=== PATIENT | male | born 1965 | race Caucasian/White ===

== ENCOUNTER → 2023-06-24 10:00 | Outpatient (BNVA) | payer OTHER, SELFPAY | PROVIDERS: PCP Family Medicine; Referring Provider Family Medicine; Visit Provider Surgery | DX: Z12.11 Encounter for screening for malignant neoplasm of colon | CPT/HCPCS: 99203 ==

== ENCOUNTER 2023-06-25 12:11 | Outpatient (CLI) | payer OTHER, SELFPAY | END 2023-06-25 12:12 | disposition home or self-care (01) | LOC: LAB 12:11 | PROVIDERS: PCP Family Medicine; Visit Provider Surgery | DX: K59.09 Other constipation (principal) | CPT/HCPCS: 82274 ==

== ENCOUNTER 2023-09-25 06:00 | Day surgery (SDC) | payer OTHER, SELFPAY ==
--- NOTE | 2023-09-25 05:43 | W.PM.OPSFHP ---
Same Day Surgery H&P Indication for Procedure/HPI DATE OF PROCEDURE: September 25, 2023 CHIEF COMPLAINT/INDICATIONFOR SURGICAL PROCEDURE: need for screening colonoscopy PREOP DIAGNOSIS: need for screening colonoscopy PLANNED PROCEDURE: Operation Date: 09/25/23 07:00 Proposed Procedures p 59410 colon G0121 screen colon A risk Z12.11(Not Applicable) - Yogesh Cerna MD Medications/Allergies* Home Medications Medication Instructions Recorded Confirmed Type atorvastatin 80 mg tablet 80 mg PO DAILY 06/24/23 09/23/23 History meloxicam 7.5 mg tablet 7.5 mg PO DAILY 06/24/23 09/23/23 History metoprolol tartrate 50 mg tablet 50 mg PO BID 06/24/23 09/23/23 History omeprazole 40 mg capsule,delayed 40 mg PO DAILY 06/24/23 09/23/23 History release lisinopril 20 mg tablet 20 mg PO DAILY 09/23/23 09/23/23 History metformin 500 mg tablet 500 mg PO BID 09/23/23 09/23/23 History Allergies/Adverse Reactions Allergy/AdvReac Type Severity Reaction Status Date / Time Sulfa (Sulfonamide Allergy ADR-Muscle Verified 09/23/23 08:29 Antibiotics) Pain Pertinent History/Comorbid Conditions* Family History (Updated 06/24/23 @ 10:22 by SAMI Loja) Father, age 32 Borderline diabetes Mother Cancer Father unsure of which kind Hypertension Mother Social History Smoking and tobacco/nicotine status: never used tobacco/nicotine Alcohol intake: current Alcohol intake frequency: holidays/special occasions only Pertinent Exam Findings alert, oriented x 3 and clear to auscultation bilaterally Recommendations Surgery/Procedure today Coding Level of Care Code Acute Code for Chg Fwd
[2023-09-25 06:18] VITALS: BP 132/94; PULSE 80; RESP 18; TEMP 36.1; O2SAT 98; BMI 34.7
[2023-09-25] MEDS: sodium chloride 0.9% 1,000 ML 30 ML IV (06:30)
[2023-09-25 06:34] LABS: Glucose Point of Care 152 mg/dL (70-110)
--- NOTE | 2023-09-25 06:55 | ANES.PREANE2 ---
Pre-Anesthetic Assessment Height/Weight: Height 1.75 m Weight 106.594 kg Temp Pulse Resp BP Pulse Ox O2 Del Method 96.9 F L 80 18 132/94 98 Room Air 09/25/23 06:18 09/25/23 06:18 09/25/23 06:18 09/25/23 06:18 09/25/23 06:18 09/25/23 06:18 Preop Diagnosis: need for screening colonoscopy Operation Date: 09/25/23 07:00 Proposed Procedures p 26592 colon G0121 screen colon A risk Z12.11(Not Applicable) - Yogesh Cerna MD Familial anesthetic complications: none Was Beta John taken within 24 hours: N/A Was Clonidine taken within 24 hours: N/A Last intake: Intake Last Liquid Date 09/24/23 Last Liquid Time 23:00 Last Solid Date 09/23/23 Last Solid Time 18:00 Social No alcohol and No tobacco Exam alert and oriented x 3 Airway Submandibular: within normal limits Cervical ROM: within normal limits Mallampati: Class III Dentition: full Pulmonary Sleep Apnea CV/HEM Hypertension None reported Hepatic None reported GI Gastroesophageal Reflux Disease and Hiatal Hernia Metabolic Diabetes Mellitus and Morbid Obesity [facility] None reported Neuropsych None reported Anesthetic Plan ASA status: 3 Anesthesia: Anesthesia Evaluation and General Risk of > 500 ml blood loss (7ml/kg in children): No Medications/Allergies Home Medications Medication Instructions Recorded Confirmed Last Taken Type atorvastatin 80 mg tablet 80 mg PO DAILY 06/24/23 09/23/23 09/23/23 History meloxicam 7.5 mg tablet 7.5 mg PO DAILY 06/24/23 09/23/23 09/23/23 History metoprolol tartrate 50 mg tablet 50 mg PO BID 06/24/23 09/23/23 09/24/23 07:30 History omeprazole 40 mg capsule,delayed 40 mg PO DAILY 06/24/23 09/23/23 09/24/23 History release lisinopril 20 mg tablet 20 mg PO DAILY 09/23/23 09/23/23 09/23/23 History metformin 500 mg tablet 500 mg PO BID 09/23/23 09/23/23 09/23/23 History Multi Vitamin 1 tab PO DAILY 09/25/23 09/25/23 09/24/23 History Allergies Allergy/AdvReac Type Severity Reaction Status Date / Time Sulfa (Sulfonamide Allergy ADR-Muscle Verified 09/23/23 08:29 Antibiotics) Pain Current Medications Generic Name Dose Route Start Last Admin Trade Name Freq PRN Reason Stop Dose Admin Sodium Chloride 1,000 mls @ 30 mls/hr 09/25/23 06:15 09/25/23 06:30 Sodium Chloride 0.9% IV 09/26/23 06:14 30 mls/hr .Q24H TRACEE Administration PFSH Anesthesia Family History (Updated 06/24/23 @ 10:[address]) Mother Hypertension Borderline diabetes Father , age 32 Cancer unsure of which kind Social History (Updated 06/24/23 @ 10:[address]) Smoking and tobacco/nicotine status: never used tobacco/nicotine Alcohol intake: current Alcohol intake frequency: holidays/special occasions only Data Anesthesia Cardiac Studies: No Data to Display
[2023-09-25 07:37] VITALS: BP 115/78; PULSE 55; RESP 18; TEMP 36.2; O2SAT 92
[2023-09-25 07:47] VITALS: BP 132/83; PULSE 73; RESP 18; O2SAT 96
[2023-09-25 07:58] VITALS: BP 117/84; PULSE 63; RESP 18; O2SAT 97
--- NOTE | 2023-09-25 08:16 | ANE.PACU2 ---
Inpatient post-anesthesia follow up: Airway intact: Yes Vital signs: Temperature 97.1 F Pulse Rate 63 Respiratory Rate 18 Blood Pressure 117/84 Pulse Oximetry 97 Oxygen Delivery Me thod Room Air Oxygen Flow Rate Fraction of Inspir ed Oxygen Hydration adequate: Yes Nausea and vomiting: No Pain level: 1 Mental status: Baseline
== END 2023-09-25 08:23 | disposition home or self-care (01) ==
PROVIDERS: PCP Family Medicine; Visit Provider Surgery
PROC: 0DJD8ZZ Inspection of Lower Intestinal Tract, Via Natural or Artificial Opening Endoscopic (ICD-10-PCS; CPT 45378; principal; 2023-09-25 07:00)
DX: Z12.11 Encounter for screening for malignant neoplasm of colon (principal); K57.30 Diverticulosis of large intestine without perforation or abscess without bleeding; D12.5 Benign neoplasm of sigmoid colon; D12.3 Benign neoplasm of transverse colon; G47.30 Sleep apnea, unspecified; I10 Essential (primary) hypertension; K21.9 Gastro-esophageal reflux disease without esophagitis; E11.9 Type 2 diabetes mellitus without complications; E66.01 Morbid (severe) obesity due to excess calories; Z68.34 Body mass index [BMI] 34.0-34.9, adult; Z79.84 Long term (current) use of oral hypoglycemic drugs
CPT/HCPCS: 36416; 45380; 45385; 82962; 88305; J2704; J7030

== ENCOUNTER → 2023-10-08 10:48 | Outpatient (BNVA) | payer OTHER, SELFPAY | PROVIDERS: PCP Family Medicine; Visit Provider Surgery | DX: Z09 Encounter for follow-up examination after completed treatment for conditions other than malignant neoplasm (principal) | CPT/HCPCS: 99213 ==

== ENCOUNTER 2023-11-24 20:00 | Outpatient (CLI) | payer OTHER, SELFPAY | END 2023-11-24 20:01 | disposition home or self-care (01) | LOC: SLEEP 11-25 06:29 | PROVIDERS: PCP Family Medicine; Visit Provider Family Medicine | DX: G47.33 Obstructive sleep apnea (adult) (pediatric) (principal); G47.36 Sleep related hypoventilation in conditions classified elsewhere | CPT/HCPCS: 95811 ==

== ENCOUNTER 2024-03-02 09:10 | Outpatient (CLI) | payer OTHER, SELFPAY ==
--- NOTE | 2024-03-02 | ECG_ITS ---
[facility] Test Date: 2024-03-02 Pat Name: Joce Turner Department: Room: Gender: Male [employer] Advisor: : 1965 Requested By: Trista Christiansen Order Number: [id number] Yvon MD: Sean Juarez M.D. Interpretive Statements LEXISCAN SESTAMIBI STRESS TEST Procedure: At the baseline, the blood pressure was 126/77 mmHg with a heart rate of 56 bpm. The electrocardiogram showed sinus bradycardia, normal axis with normal ST and T's. The Lexiscan was infused over a period of 20 seconds. A total of 0.4 mg of Lexiscan was infused. The stress phase was continued for a total of 5 minutes. Heart rate was at the end of stress phase was 70 bpm and a blood pressure of 132/81 mmHg. The EKG at the peak infusion revealed normal sinus rhythm with no significant ST-T wave changes. Sestamibi was injected 20 seconds after the Lexiscan infusion. Blood pressure at the end of recovery phase was 130/81 mmHg with a heart rate of 67 bpm. Conclusion: 1. Normal EKG response to Lexiscan infusion 2. No Lexiscan induced chest pain or cardiac arrhythmia. 3. Normal blood pressure and heart rate response. 4. Sestamibi/sestamibi perfusion scan pending; see separate report. Electronically Signed On 03-12-2024 21:46:40 CDT by eSan Juarez M.D. [email or web address]
--- NOTE | 2024-03-02 09:17 | NMCV_ITS ---
NM bertha perf SPECT r/s* [id number] Joce Turner Age: 59 Gender: M : 1965 Exam Date: 03/02/2024 10:09 Ordering Phys: Trista Christiansen MD Technologist: GUILLERMO Mcneal Exam Location: [facility] Indications: cp STRESS TEST Please see separate stress test report in [facility] for full findings IMAGE PROTOCOL Rest/Stress 1 Lexiscan Day Radiopharmaceutical Dose (mCi) Administration Site Administered by Rest: Tc-99m 10.6 IV Sarah Banuelos, DYNO TECHNICIAN Sestamibi Stress:Tc-99m 33 IV Sarah Riveragle, DYNO TECHNICIAN Sestamibi Rest: 02-Mar-2024 60 Discovery 630 Stress: 02-Mar-2024 30 Discovery 630 0.4mg Lexiscan. Images obtained in supine and prone position. SPECT RESULTS Technical Quality: Good Raw Data Analysis: Normal Image Corrections: No attenuation or motion correction applied Summed Stress Score: 5 Summed Rest Score: 8 Summed Difference Score: 1 PERFUSION FINDINGS There is medium sized area of fixed perfusion defect seen in inferior and inferolateral de. This is consistent with medium sized area of prior infarct with no significant oralia-infarct ischemia in these territories. Small area of reversible perfusion defect seen in the apical wall. FUNCTIONAL RESULTS (calculated via Gated SPECT) Stress Image LV EF (%): 70 Stress EDV (mL):100 TID: 1.17 Stress ESV (mL):30 FUNCTIONAL FINDINGS: There is normal left ventricular systolic function. IMPRESSIONS 1. Abnormal myocardial perfusion imaging with medium sized area of prior infarct with no significant oralia-infarct ischemia seen in the inferior and inferolateral de. 2. Small area of ischemia seen in the apical wall. 2. LV systolic function is normal Sean Juarez MD (Electronically Signed) Final Date: 05 March 2024 12:06 S
[2024-03-02 09:36] VITALS: BMI 34.7
[2024-03-02] MEDS: regadenoson 0.4 Mg/5 ml Syringe IVP (10:49)
[2024-03-02 11:12] VITALS: BP 130/81; PULSE 68
== END 2024-03-02 09:11 | disposition home or self-care (01) ==
PROVIDERS: PCP Family Medicine; Visit Provider Family Medicine
DX: I10 Essential (primary) hypertension (principal); R06.02 Shortness of breath; R94.39 Abnormal result of other cardiovascular function study
CPT/HCPCS: 36415; 78452; 93017; 96374; A9500; J2785